=== PATIENT | male | born 1960 | race Caucasian/White ===

== ENCOUNTER → 2020-01-27 | Outpatient (CLI) | payer MEDICARE ==
[~2020-01-27] MED LIST: AMLO-150 PO; APIX5TAB PO; ASCO10004 PO; CALC1CAP8 PO; CARI350T PO; CELE200C PO; CLON0.1T22 PO; FURO20TA3 PO; GLUC-149 PO; HYDR-3342 PO; LIDO700A20 TD; LISI-170 PO; LOVA10TA PO; METO-99 PO; MULT-797 PO; NORT50CA52 PO; OXYC-432 PO; OXYC20TA42 PO; POTA99TA3 PO
== END | disposition home or self-care (01) ==
LOC: CVU 12:04
PROVIDERS: ATTEND Internal Medicine Cardiovascular Disease
DX: I05.8 Other rheumatic mitral valve diseases (principal); I48.92 Unspecified atrial flutter
CPT/HCPCS: 93306